=== PATIENT | male | born 1960 | race African-American/Black ===

== ENCOUNTER 2019-11-09 10:04 | Outpatient (CLI) | payer BC, OTHER ==
--- NOTE | 2019-11-09 11:02 | ULT ---
ULTRASOUND RETROPERITONEUM COMPLETE: (RENAL) DATE: 11/09/2019 HISTORY: 58 year old male with hematuria COMPARISON: None FINDINGS: Right kidney: 12 x 7 x 6 cm. The craniocaudal measurement of 12 cm includes the moderately large part ially exophytic right renal upper pole cyst, and therefore this may be an overestimate. Left kidney: 10 x 6 x 5.5 cm. No hydronephrosis bilaterally. Multiple bilateral renal cysts. The largest is a 6.5 x 5.5 x 6 cm right renal upper and mid pole cyst. The largest cyst on the left is parapelvic lower pole measuring approximately 1.8 x 1.8 x 1.7 cm. Urinary bladder volume 120 mL. Complete emptying of the urinary bladder upon voiding. Bladder wall thickness within normal limits. Enlarged prostate with lobulated superior margins indenting the base of bladder. IMPRESSION: 1. Multiple bilateral renal cysts. 2. At least mildly enlarged prostate.
== END 2019-11-09 10:05 | disposition home or self-care (01) ==
LOC: BICULT 10:04
PROVIDERS: ATTEND Nurse Practitioner Family
DX: R31.9 Hematuria, unspecified (principal); N40.0 Benign prostatic hyperplasia without lower urinary tract symptoms; N28.1 Cyst of kidney, acquired
CPT/HCPCS: 76770

== ENCOUNTER 2019-12-15 11:55 | Emergency (ER) | payer OTHER ==
[2019-12-15 12:35] LABS: #Basophils 0.1 thou/uL (0.0-0.2); #Eosinphils 0.1 thou/uL (0.0-0.7); #Lymphocytes 1.4 thou/uL (1.20-3.40); #Monocytes 0.5 thou/uL (0.11-0.59); %Basophils 0.9 % (0.0-1.0); %Eosinophils 1.9 % (0.0-10.0); %Lymphocytes 19.9 % (21.0-51.0); %Monocytes 6.8 % (0.0-10.0); %Neutrophils 70.5 % (42.0-75.0); Hemoglobin 13.1 g/dL (14.0-18.0); Mean Corpuscular HGB CONC 33.1 g/dL (32.0-36.0); Mean Corpuscular Volume 96.8 fL (78.0-98.0); Mean Platelet Volume 7.3 fL (7.4-10.4); Platelet Count 225 thou/uL (130-400); White Blood Cell (WBC) Count 7.2 thou/uL (4.8-10.8)
[2019-12-15] MEDS ORDERED: Ketorolac Tromethamine 30 MG/ML VIAL ONE (12:36)
[2019-12-15 12:55] LABS: Bilirubin Negative (Negative); Blood, Urine Negative (Negative); Clarity Clear (Clear); Glucose, Urine (Dipstick) Normal (Negative); Ketone, Urine Negative (Negative); Leukocyte Negative Leu/uL (Negative); Nitrite Negative (Negative); Protein, Urine (Dipstick) Negative (Neg-Trace); Specific Gravity, Urine 1.007 (1.002-1.036); Urobilinogen Normal mg/dL (Less than 2); pH, Urine 5.5 (5.0-9.0)
[2019-12-15 12:58] LABS: ALT (SGPT) 13 U/L (8-55); AST (SGOT) 19 U/L (5-34); Albumin 3.9 g/dL (3.5-5.0); Alkaline Phosphatase 58 U/L (40-110); Anion Gap 16 mmol/L (10-20); BUN (Urea Nitrogen) 13 mg/dL (8.4-25.7); Bilirubin, Total 0.4 mg/dL (0.2-1.2); CK (CPK) 117 U/L (30-200); Calc. Creatinine Clearance 0 mL/min (70-130); Calcium 9.1 mg/dL (7.8-10.44); Carbon Dioxide 20 mmol/L (22-29); Chloride 106 mmol/L (98-107); Estimated GFR-MDRD Greater than 90; Globulin 3.1 g/dL (2.4-3.5); Glucose 111 mg/dL (70-105); Potassium 3.9 mmol/L (3.5-5.1); Sodium 138 mmol/L (136-145)
[2019-12-15] MEDS ORDERED: Iopamidol-370 76% 500 ML 1 ML ONE (13:00)
--- NOTE | 2019-12-15 14:07 | CT ---
CT ABDOMEN AND PELVIS WITH IV CONTRAST: 12/15/19 HISTORY: Right flank pain with associated dysuria and hematuria. COMPARISON: None. FINDINGS: There are blebs in the lung bases. The liver, spleen, pancreas and adrenal glands are normal. No calc ified gallstones are seen. Bilateral renal cysts are present, the largest in the right upper kidney m easuring 6.2 cm. No hydroureteronephrosis is seen on either side. No free air, free fluid or lymphadenopathy is noted in the abdomen or pelvis. There are vascular calcifications without evidence of aneurysmal of the abdominal aorta. The small lauren wel loops are not abnormally dilated. A normal appearing appendix is present. There are degenerative changes in the spine. Please note that this exam is not urography protocol. IMPRESSION: 1. No evidence of acute process. 2. Bilateral renal cysts. POS: OFF
== END 2019-12-15 15:45 | disposition home or self-care (01) ==
LOC: ERS 11:55
DX: N28.1 Cyst of kidney, acquired (principal); I10 Essential (primary) hypertension; E78.00 Pure hypercholesterolemia, unspecified; F17.210 Nicotine dependence, cigarettes, uncomplicated; Z79.82 Long term (current) use of aspirin
CPT/HCPCS: 36600; 74177; 80053; 81003; 82550; 83605; 85025; 94760; 96361; 96374; J1885; Q9967